=== PATIENT | male | born 1975 | race Caucasian/White ===

== ENCOUNTER 2016-12-30 22:29 | Emergency (ER) | payer SELFPAY ==
[2016-12-31] MEDS ORDERED: MORPHINE SULFATE 10 MG/ML INJ IV ONE ×2 (03:08→05:12)
[2016-12-31] MEDS ORDERED: ONDANSETRON HCL INJ/PF 4 MG/2 ML SDV IV ONE (03:09)
[2016-12-31] MEDS ORDERED: NORMAL SALINE 1000 ML 1,000 ML IV ONE ×2 (03:09→05:03)
--- NOTE | 2016-12-31 03:12 | ER Document Report ---
ED General - General Chief Complaint: Low Back Pain Stated Complaint: BACK PAIN Time seen by provider: 03:10 Notes: Patient is a 41-year-old male that comes emergency department for chief complaint of pain in his right flank, patient states he has not felt good for about 3 days, patient denies injury, he states he's felt nauseated but has not vomited. Patient states pain radiates around to his mid right abdomen. Patient denies history of kidney stones. Past medical history of hypertension, denies any surgeries or medical history otherwise. TRAVEL OUTSIDE OF THE [place] IN LAST 30 DAYS: No - Related Data Allergies/Adverse Reactions: No Known Allergies Allergy (Unverified 12/31/16 05:49) Past Medical History - General Information source: Patient - Social History Smoking Status: Never Smoker Drug Abuse: None Lives with: Family Family History: Reviewed & Not Pertinent - Past Medical History Cardiac Medical History: Reports: Hx Hypertension Renal/ Medical History: Denies: Hx Peritoneal Dialysis Surgical Hx: Negative - Immunizations Hx Diphtheria, Pertussis, Tetanus Vaccination: Yes Review of Systems - Review of Systems Constitutional: No symptoms reported EENT: No symptoms reported Cardiovascular: No symptoms reported Respiratory: No symptoms reported Gastrointestinal: See HPI Genitourinary: See HPI Male Genitourinary: No symptoms reported Musculoskeletal: See HPI Skin: No symptoms reported Hematologic/Lymphatic: No symptoms reported Neurological/Psychological: No symptoms reported Physical Exam - Vital signs Vitals: Temp Pulse Resp BP Pulse Ox 97.7 F 119 H 20 133/105 H 95 12/30/16 22:46 12/30/16 22:46 12/30/16 22:46 12/30/16 22:46 12/30/16 22:46 Interpretation: Normal - General General appearance: Anxious In distress: None - Patient appears anxious but does not appear to be in any distress - HEENT Head: Normocephalic, Atraumatic Eyes: Normal Pupils: PERRL - Respiratory Respiratory status: No respiratory distress Chest status: Nontender Breath sounds: Normal Chest palpation: Normal - Cardiovascular Rhythm: Regular, Tachycardia - borderline Heart sounds: Normal auscultation, S1 appreciated, S2 appreciated Murmur: No - Abdominal Inspection: Normal Distension: No distension Bowel sounds: Normal Tenderness: Tender - Patient complains of pain regardless of for touch, I do not appreciate any rigidity or significant guarding Organomegaly: No organomegaly - Back Back: Normal, CVA tenderness - right side. No: Tender - Extremities General upper extremity: Normal inspection, Nontender, Normal color, Normal ROM , Normal temperature General lower extremity: Normal inspection, Nontender, Normal color, Normal ROM , Normal temperature, Normal weight bearing. No: Cedric's sign - Neurological Neuro grossly intact: Yes Cognition: Normal Orientation: AAOx4 [place] Coma Scale Eye Opening: Spontaneous [place] Coma Scale Verbal: Oriented [place] Coma Scale Motor: Obeys Commands Magui Coma Scale Total: 15 Speech: Normal Cranial nerves: Normal Cerebellar coordination: Normal Motor strength normal: LUE, RUE, LLE, RLE Sensory: Normal - Psychological Associated symptoms: Normal affect, Normal mood - Skin Skin Temperature: Warm Skin Moisture: Dry Skin Color: Normal Course - Re-evaluation Re-evalutation: Patient with what appears to be right flank/CVA tenderness, pain over the abdomen, reported nausea, no vomiting. Leukocytosis of 16.7, elevation of neutrophils with no bandemia, no fever, patient borderline tachycardic after IV fluids. Chemistry indicates undiagnosed type II diabetes with glucose greater than 300, bicarbonate is unremarkable, trace ketones in the urine. Urine has some white blood cells but no nitrites. CT was performed because of initial examination suggestive of kidney stone with flank pain and nausea, however no stone is seen, appendix is normal, no abnormal findings are noted. Discussed with Dr. Aguiar, recommends ultrasound, lactic acid, A1c. Ultrasound is unremarkable, patient still complaining of flank pain on reexamination, patient hypertensive, states he was prescribed clonidine at one point but currently sees no primary care providers. Glucose is downtrending. Lactic acid unremarkable. A1c is elevated. Discussed with Dr. Stevenson for disposition, recommends treatment of type II diabetes with metformin, will treat hypertension, he recommends patient be placed on an antibiotic because of white blood cells in the urine, flank pain, leukocytosis despite unremarkable imaging. Recommends close primary care follow -up. I discussed with patient, patient states that he will fill the medications as long as they are very affordable, as a result patient will be given metformin, lisinopril, Cipro, patient referred to primary care. Patient agrees to return if he worsens in any way including worsening pain, fever, vomiting, etc. - Vital Signs Vital signs: Temp Pulse Resp BP Pulse Ox 98.3 F 101 H 21 H 161/109 H 96 04/11/17 05:22 12/31/16 05:22 12/31/16 07:01 12/31/16 07:01 12/31/16 07:01 - Laboratory Result Diagrams: 12/31/16 04:10 12/31/16 04:10 Laboratory results interpreted by me: 12/31/16 12/31/16 12/31/16 04:10 04:10 04:10 WBC 16.7 H Hgb 13.3 L Seg Neutrophils % 83.1 H Lymphocytes % 9.7 L Absolute Neutrophils 13.9 H Sodium 135.5 L Chloride 94 L Creatinine 0.50 L Glucose 317 H POC Glucose Hemoglobin A1c % AST 16 L Alkaline Phosphatase 146 H Urine Protein 100 H Urine Glucose (UA) 150 H Urine Ketones TRACE H Urine Urobilinogen 4.0 H 12/31/16 12/31/16 04:10 07:05 WBC Hgb Seg Neutrophils % Lymphocytes % Absolute Neutrophils Sodium Chloride Creatinine Glucose POC Glucose 262 H Hemoglobin A1c % 9.8 H AST Alkaline Phosphatase Urine Protein Urine Glucose (UA) Urine Ketones Urine Urobilinogen Discharge - Discharge Clinical Impression: Flank pain, Hyperglycemia, Nausea Abdominal pain Qualifiers: Abdominal location: generalized Qualified Code(s): R10.84 - Generalized abdominal pain Condition: Stable Disposition: HOME, SELF-CARE Additional Instructions: Workup indicates that you have type II diabetes, fatty liver, although the specific cause of your flank and abdominal discomfort is no obvious. Imaging is normal. You are being prescribed an antibiotic called Cipro, please take this as prescribed, take pain medication given as prescribed. Take the metformin for diabetes, take lisinopril for blood pressure. Please follow-up very closely with the referral to primary care management. Return immediately if you worsen in any way including vomiting, fever, severe abdominal pain, etc. Prescriptions: Ciprofloxacin HCl [Cipro 500 mg Tablet] 500 mg PO BID #14 tablet Hydrocodone/Acetaminophen [[place] 5-325 mg Tablet] 1 - 2 tab PO ASDIR #15 tablet Lisinopril 10 mg PO DAILY #30 tablet Metformin HCl 500 mg PO BID #60 tablet Forms: Return to Work Referrals: ISAI TINEO MD [ACTIVE STAFF] - Follow up tomorrow [facility] [Provider Group] - Follow up tomorrow
[2016-12-31 04:33] LABS: ABSOLUTE BASOPHILS # (AUTO) 0.1 10^3/uL (0.0-0.2); ABSOLUTE LYMPHOCYTES (AUTO) 1.6 10^3/uL (0.5-4.7); ABSOLUTE MONOCYTES (AUTO) 1.1 10^3/uL (0.1-1.4); ABSOLUTE NEUT (AUTO) 13.9 10^3/uL (1.7-8.2); BASOPHILS % (AUTO) 0.6 % (0-2); EOSINOPHILS % (AUTO) 0.2 % (0-6); HEMATOCRIT 39.2 % (37.9-51.0); HEMOGLOBIN 13.3 g/dL (13.5-17.0); HGB HCT DIFFERENCE 0.7; LYMPHOCYTES % (AUTO) 9.7 % (13-45); MEAN CORPUSCULAR HGB CONC 33.8 g/dL (32.0-36.0); MEAN CORPUSCULAR VOLUME 83 fl (80-97); MONOCYTES % (AUTO) 6.4 % (3-13); RED BLOOD COUNT 4.73 10^6/uL (4.35-5.55); RED CELL DISTRIBUTION WIDTH 13.5 % (11.5-14.0); SEGMENTED NEUTROPHILS % (AUTO) 83.1 % (42-78); WHITE BLOOD COUNT 16.7 10^3/uL (4.0-10.5)
[2016-12-31] MEDS ORDERED: DIPHENHYDRAMINE HCL 50 MG/ML VIAL IV ONE (04:44)
[2016-12-31 04:45] LABS: APPEARANCE,URINE SLIGHTLY-CLOUDY; BILIRUBIN,URINE NEGATIVE (NEGATIVE); GLUCOSE, URINE 150 mg/dL (NEGATIVE); KETONES,URINE TRACE mg/dL (NEGATIVE); LEUKOCYTE ESTERASE,URINE NEGATIVE (NEGATIVE); NITRITE,URINE NEGATIVE (NEGATIVE); PROTEIN,URINE 100 mg/dL (NEGATIVE); URINE SPECIFIC GRAVITY 1.019
[2016-12-31 04:50] LABS: ALANINE AMINOTRANSFERASE 36 U/L (21-72); ALBUMIN 3.7 g/dL (3.5-5.0); ALKALINE PHOSPHATASE 146 U/L (38-126); ANION GAP 15 (5-19); ASPARTATE AMINO TRANSFERASE 16 U/L (17-59); BILIRUBIN,DIRECT 0.3 mg/dL (0.0-0.4); BILIRUBIN,TOTAL 0.8 mg/dL (0.2-1.3); BLOOD UREA NITROGEN 13 mg/dL (7-20); CALCIUM 9.8 mg/dL (8.4-10.2); CARBON DIOXIDE 27 mmol/L (22-30); CHLORIDE 94 mmol/L (98-107); GLUCOSE 317 mg/dL (75-110); POTASSIUM 4.6 mmol/L (3.6-5.0); SODIUM 135.5 mmol/L (137-145)
[2016-12-31] MEDS ORDERED: LISINOPRIL 10 MG TABLET PO ONE (06:58)
[2016-12-31] MEDS ORDERED: CIPROFLOXACIN HCL 500 MG TABLET PO ONE (06:58)
[2016-12-31] MEDS ORDERED: HYDROCODONE/ACETAMINOPHEN 5-325 MG 6 TAB/DSPK PO PRN (06:59)
[2016-12-31 07:40] VITALS: BP 160/99
--- NOTE | 2016-12-31 07:42 | ER Document Report ---
Doctor's Note Notes: 12/31/16 07:42 Patient independently seen and examined by myself. Patient reports prostate 5 days pain in the right flank along with dark urine and nausea but no vomiting. Abdomen soft bowel sounds positive nontender nondistended no guarding no rebound or rigidity Back as positive for right CVA tenderness and right flank tenderness with palpation. Patient's had a normal abdominal ultrasound normal noncontrasted CT abdomen pelvis. Does have leukocytosis and equivocal evidence for UTI. Laboratory work also supports new onset diabetes but no evidence for DKA as his CO2 and anion gap are normal. Patient will receive primary care referral initial treatment for new onset type II diabetes. He also be treated with antibiotics for potential urinary tract infection. He has benign abdominal exam and unremarkable imaging do not find other more serious etiology to explain his back pain. 12/31/16 07:43
== END 2016-12-31 07:40 | disposition home or self-care (01) ==
LOC: ER 22:29
DX: R73.9 Hyperglycemia, unspecified (principal); R10.9 Unspecified abdominal pain; R11.0 Nausea; R10.84 Generalized abdominal pain; M54.5 Low back pain
CPT/HCPCS: 96376; 99284; 96374; 96375; 36415; 87086; 82962; 83605; 83690; 85025; 87088; 80053; 81001; 87186; 83036; 76705; 76380; J1200; J2270; J2405; J7030

== ENCOUNTER 2017-01-13 12:06 | Inpatient (IN) | payer SELFPAY ==
--- NOTE | 2017-01-13 12:28 | ER Document Report ---
ED Neck/Back Problem - General Mode of Arrival: Medic Information source: Patient TRAVEL OUTSIDE OF THE [place] IN LAST 30 DAYS: No - HPI Patient complains to provider of: Pain, Lower back Onset: Other - 2 weeks ago Context: Other - see notes above Associated symptoms: Other - see notes above - General Chief Complaint: Low Back Pain Stated Complaint: BACK PAIN Notes: 41 year old male with recently diagnosed hypertension and type II diabetes mellitus presents to the ED complaining of lower back pain that started approximately 2 weeks ago. Patient reports that he was seen here on 12/31/2016 for lower back pain where a CT scan and Ultrasound provided negative result, but was given antibiotics for a possible urine infection. Patient reports that he started feeling better when taking the antibiotics, but progressively got worse after he finished his antibiotics. Patient reports diaphoresis, generalized abdominal pain, numbness and tingling to the bilateral fingers ( started this weekend), but denies nausea, vomiting, diarrhea, or hematuria. Patient reports he hasn't had a bowel movement in 1 week, but states that is not abnormal. 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 Patient is currently medicated for diabetes and hypertension. (DEMETRI TINEO) - Related Data Allergies/Adverse Reactions: No Known Allergies Allergy (Unverified 12/31/16 05:49) Past Medical History - General Information source: Patient - Social History Smoking Status: Unknown if Ever Smoked Drug Abuse: Other - history of IV drug abuse 2011 Family History: Reviewed & Not Pertinent - Past Medical History Cardiac Medical History: Reports: Hx Hypertension Endocrine Medical History: Reports: Hx Diabetes Mellitus Type 2 Renal/ Medical History: Denies: Hx Peritoneal Dialysis Skin Medical History: Reports Hx MRSA - Immunizations Hx Diphtheria, Pertussis, Tetanus Vaccination: Yes Review of Systems - Review of Systems Constitutional: See HPI, Diaphoresis EENT: No symptoms reported Cardiovascular: No symptoms reported Respiratory: No symptoms reported Gastrointestinal: See HPI, Abdominal pain. denies: Diarrhea, Nausea, Vomiting Genitourinary: No symptoms reported. denies: Hematuria Male Genitourinary: No symptoms reported Musculoskeletal: See HPI, Back pain - lower Skin: No symptoms reported Hematologic/Lymphatic: No symptoms reported Neurological/Psychological: See HPI, Numbness - bilateral fingers, Tingling - bilateral fingers -: Yes All other systems reviewed and negative Course - Re-evaluation Re-evalutation: 01/13/17 12:43 GENERAL: VS as per nursing doc. Well-appearing, well-nourished and mild acute distress. HEAD: Atraumatic, normocephalic. EYES: Pupils equal round and reactive to light, extraocular movements intact, sclera anicteric, no conjunctival injection or discharge. ENT: Nares patent, oropharynx clear without exudates, somewhat dry mucous membranes. NECK: Normal range of motion, supple without lymphadenopathy. LUNGS: Breath sounds clear to auscultation bilaterally and equal. No wheezes rales or rhonchi. HEART: Tachycardic with 2/6 systolic murmur heard best over the mitral valve region. ABDOMEN: Soft, diffuse tenderness across the right upper abdomen to epigastrium. BACK: No CVA tenderness. Severe tenderness of the mid to upper lumbar spine and paraspinal musculature. Significant pain noted even with log roll for exam. EXTREMITIES: Normal range of motion though increases back pain, no calf tenderness, no edema. Slight mottling NEUROLOGICAL: Cranial nerves grossly intact. Normal speech. Normal sensory and motor exams. No gross cerebellar abnormalities. PSYCH: Normal mood, normal affect. SKIN: Cool and slightly moist, there is a patch over the left hand and right thigh of inflamed tissue, no clear splinter hemorrhages or petechiae. (RUTHANN BORDEN) - Vital Signs Vital signs: Temp Pulse Resp BP Pulse Ox 98.4 F 117 H 17 124/83 70 L 01/13/17 12:23 01/13/17 12:23 01/13/17 12:27 01/13/17 12:23 01/13/17 12:27 Scribe Documentation - Scribe Written by Jerod:: Jerod Hagan, 01/13/2017 [id number] acting as scribe for :: Luis Carlos
[2017-01-13] MEDS ORDERED: NORMAL SALINE 500 ML IV ONE (12:33)
[2017-01-13] MEDS ORDERED: ONDANSETRON HCL INJ/PF 4 MG/2 ML SDV IV ONE (12:34)
[2017-01-13] MEDS ORDERED: HYDROMORPHONE HCL INJ/PF 2 MG/ML AMPULE IV ONE ×2 (12:34→17:28)
[2017-01-13 14:03] LABS: ABSOLUTE BASOPHILS # (AUTO) 0.1 10^3/uL (0.0-0.2); ABSOLUTE LYMPHOCYTES (AUTO) 1.4 10^3/uL (0.5-4.7); ABSOLUTE MONOCYTES (AUTO) 0.9 10^3/uL (0.1-1.4); ABSOLUTE NEUT (AUTO) 9.5 10^3/uL (1.7-8.2); BASOPHILS % (AUTO) 0.5 % (0-2); EOSINOPHILS % (AUTO) 0.2 % (0-6); HEMATOCRIT 36.9 % (37.9-51.0); HEMOGLOBIN 12.8 g/dL (13.5-17.0); HGB HCT DIFFERENCE 1.5; LYMPHOCYTES % (AUTO) 11.8 % (13-45); MEAN CORPUSCULAR HGB CONC 34.6 g/dL (32.0-36.0); MEAN CORPUSCULAR VOLUME 81 fl (80-97); MONOCYTES % (AUTO) 7.6 % (3-13); RED BLOOD COUNT 4.56 10^6/uL (4.35-5.55); RED CELL DISTRIBUTION WIDTH 13.9 % (11.5-14.0); SEGMENTED NEUTROPHILS % (AUTO) 79.9 % (42-78); WHITE BLOOD COUNT 11.9 10^3/uL (4.0-10.5)
[2017-01-13 14:25] LABS: ALANINE AMINOTRANSFERASE 45 U/L (21-72); ALBUMIN 3.8 g/dL (3.5-5.0); ALKALINE PHOSPHATASE 201 U/L (38-126); ANION GAP 13 (5-19); ASPARTATE AMINO TRANSFERASE 27 U/L (17-59); BILIRUBIN,DIRECT 1.1 mg/dL (0.0-0.4); BILIRUBIN,TOTAL 1.6 mg/dL (0.2-1.3); BLOOD UREA NITROGEN 13 mg/dL (7-20); CALCIUM 9.7 mg/dL (8.4-10.2); CARBON DIOXIDE 27 mmol/L (22-30); CHLORIDE 96 mmol/L (98-107); CREATININE RESULT 0.52 mg/dL (0.52-1.25); GLUCOSE 163 mg/dL (75-110); LIPASE 45.4 U/L (23-300); POTASSIUM 4.4 mmol/L (3.6-5.0); SODIUM 135.5 mmol/L (137-145); TOTAL PROTEIN 8.5 g/dL (6.3-8.2)
[2017-01-13 14:28] LABS: CREATINE KINASE < 20 U/L (55-170)
[2017-01-13 14:33] LABS: CREATINE KINASE MB 0.44 ng/mL (<4.55); TROPONIN I 0.03 ng/mL
[2017-01-13 14:37] LABS: C-REACTIVE PROTEIN 178.3 mg/L (<10.0)
[2017-01-13 19:49] LABS: APPEARANCE,URINE SLIGHTLY-CLOUDY; BILIRUBIN,URINE SMALL (NEGATIVE); GLUCOSE, URINE NEGATIVE (NEGATIVE); KETONES,URINE TRACE mg/dL (NEGATIVE); LEUKOCYTE ESTERASE,URINE NEGATIVE (NEGATIVE); NITRITE,URINE NEGATIVE (NEGATIVE); PROTEIN,URINE 100 mg/dL (NEGATIVE); URINE SPECIFIC GRAVITY 1.035
[2017-01-13 19:50] LABS: URINE BARBITURATES SCREEN NEGATIVE; URINE METHADONE SCREEN NEGATIVE; URINE OPIATES LOW UNCONFIRMED POSITIVE; URINE PHENCYCLIDINE SCREEN NEGATIVE
[2017-01-13] MEDS ORDERED: CIPROFLOXACIN HCL 500 MG TABLET PO ONE (19:55)
[2017-01-13] MEDS ORDERED: CEFTRIAXONE INJ 1000 MG VIAL IV ONE (19:57)
--- NOTE | 2017-01-13 21:32 | EKG REPORT ---
SEVERITY:- OTHERWISE NORMAL ECG - SINUS TACHYCARDIA : Confirmed by: Jesusita Daigle 13-Jan-2017 21:32:07
--- NOTE | 2017-01-13 21:33 | EKG REPORT ---
SEVERITY:- ABNORMAL ECG - SINUS TACHYCARDIA PROBABLE LEFT ATRIAL ABNORMALITY ST ELEVATION, CAN NOT R/O INFERIOR INJURY PROBABLE POSTERIOR INFARCT : Confirmed by: Jesusita Daigle 13-Jan-2017 21:32:52
[2017-01-13] MEDS ORDERED: DEXTROSE 50%-WATER 25 GM/50 ML DISP.SYRIN IV PRN ×2 (21:34)
[2017-01-13] MEDS ORDERED: INSULIN LISPRO 100 UNIT/ML 3 ML VIAL SUBCUT PRN (21:34)
[2017-01-13] MEDS ORDERED: DEXTROSE 40% GEL 15 GM TUBE PO PRN ×2 (21:34)
[2017-01-13] MEDS ORDERED: GLUCAGON,HUMAN RECOMB 1 MG INJ IM PRN (21:34)
[2017-01-13] MEDS ORDERED: NICOTINE 21 MG/24 HR PATCH.TD24 TD PRN (21:39)
[2017-01-13] MEDS ORDERED: PROMETHAZINE HCL INJ 25 MG/1 ML VIAL IV PRN (21:39)
[2017-01-13] MEDS ORDERED: OXYCODONE HCL IR 5 MG TABLET PO PRN (21:42)
[2017-01-13] MEDS ORDERED: MORPHINE SULFATE 10 MG/ML INJ IV PRN (21:42)
[2017-01-13] MEDS ORDERED: ACETAMINOPHEN 325 MG TABLET PO PRN (21:42)
[2017-01-13] MEDS ORDERED: NORMAL SALINE 1000 ML 1,000 ML IV PRN (21:43)
[2017-01-13] MEDS ORDERED: VANCOMYCIN HCL 0 MG in DEXTROSE 5%-WATER 250 ML IV NR (21:45)
--- NOTE | 2017-01-13 22:05 | PDOC H&P ---
History of Present Illness Admission Date/PCP: 01/13/17 20:36 PCP None Patient complains of: back pain History of Present Illness: CASSIUS ROMAN is a 41 year old male with recently diagnosed hypertension and type II diabetes mellitus, with a history of MRSA infection and endocarditis in 2011 secondary to IV drug abuse, but with no recent use of same, who presents to the emergency room for evaluation of above complaint. Patient has been discussed with emergency room physician who evaluated the patient. Was seen in the emergency room on the and discharged with diagnosis of suspected urinary tract infection. Discharge prescriptions include 500 mg of Cipro twice a day #14, norco 5-325, lisinopril 10 mg by mouth daily and metformin 500 mg by mouth twice a day.. Took medications as prescribed. While on the antibiotics, he felt better. However, states that almost immediately after stopping the antibiotics, his lower back pain, cramping and spasm-like, worsening with movement, has increased. He's had diaphoresis, generalized mild abdominal pain, subjective fever and chills, and dysuria. No prior history of urinary tract infection, pyelonephritis, or kidney stones. No chest pain. Also describes recent onset of somewhat painful lesions on the distal aspect of his right thigh, along with dorsal left wrist. Laboratory results are listed in [employer] and are reviewed. X-ray summary results are listed below, with full report(s) reviewed. . EKG's reviewed. No prior EKG available for comparison. Social history/personal habits: Single. No children. Unemployed. Pack of cigarettes per day. No alcohol or illicit drug use. Allergies/adverse reactions NKDA. Home medications as noted above. Home medications initially autopopulated into [employer] may not accurately reflect patient's true medications, dosages, and/or frequencies. mri tech to reconcile medications. REVIEW OF SYSTEMS: Constitutional: See history and present illness. Eyes: No current vision complaints. ENT: No swallowing problems or complaints. No hearing problems or complaints. Pulmonary: No current complaints. Cardiovascular: No current complaints, including chest pain. Gastrointestinal: See history and present illness. Skin: See history and present illness. Hematologic: No unusual easy bruising or bleeding. Neurologic: No current complaints, including numbness or tingling. Musculoskeletal: See history and present illness. Joint pain from arthritis. Psychiatric: No current complaints, including anxiety or depression. Endocrine: No current complaints, including polyuria. Genitourinary: See history and present illness. PHYSICAL EXAMINATION: 5 feet 9 inches tall. 92.8 kg. BMI 30.2 kg/m. Blood pressure 109/74. Pulse 109 and regular. 95% saturation on room air. Respirations are 20 and unlabored. Temperature 98.7. Slightly obese otherwise well-developed male appearing approximately his stated age. Appears not to feel very well. Complaining of lower back pain. Otherwise, pleasant awake alert and cooperative. Mildly anxious, without agitation. Female emergency room nurse Jacquelin is present. Patient's father is present at his side; patient improves. Skin is warm and dry. No grossly obvious evidence of rash in areas of skin examined. On the dorsum of his left wrist, he has approximately a 2 x 3 cm erythematous somewhat tender lesion. macular. No crepitus fluctuance or expressible discharge. On the distal dorsal lateral aspect of his right thigh, just proximal to the knee joint, he has 2 similar slightly larger lesions. Erythematous, macular, tender to touch. Again, no crepitus fluctuance or expressible discharge. ENT: Hearing grossly normal to normal conversation. Tongue midline on protrusion pink and slightly tacky. Eyes: No scleral icterus. Pupils equal and reactive to light at [address] [place] conjunctivae. Neck is supple and nontender to gentle active range of motion and palpation. Midline trachea. No palpable thyroid nodule mass enlargement or tenderness. Lymphatic: No palpable cervical or clavicular nodes. Neck and lymphatic exams limited by patient body habitus. Psychiatric: Reasonable insight into acute and chronic medical issues. Oriented to time location and why here. Lungs: Auscultation reveals clear and equal breath sounds bilaterally. No use of accessory respiratory muscles. Cardiovascular: Heart regular rate and rhythm, without gallop or rub. Subtle I/ holosystolic murmur at cardiac apex. No carotid or abdominal aortic bruits. No ankle or pedal edema. palpable dorsalis pedis pulses. Abdomen: soft, slightly obese, mild diffuse tenderness with positive bowel sounds. Certainly no evidence of guarding or peritoneal signs. A bit more uncomfortable in the lower abdomen. Unable to adequately evaluate abdomen for masses or organomegaly due to body habitus and discomfort. Palpation in his lower back reveals mild diffuse tenderness. Mild to moderate tenderness in the right costovertebral angle region. Much less so on the left. Extremities: Feet are warm and dry. No calf tenderness to compression. No grossly obvious visual evidence of calf swelling. Gentle manipulation of lower extremities fails to reveal any obvious evidence of injury or instability to knees hips or ankles. Neurologic: Moves upper extremities grossly normally. Patellar reflexes absent. Absent Babinski. Light touch is intact at feet. Dorsiflexion and plantarflexion of feet 5 / 5 and symmetric. Past Medical History Cardiac Medical History: Reports: Hypertension, Other - History of endocarditis , 2011, secondary to IV drug abuse Denies: DVT, Myocardial Infarction, Hyperlipidema, Pulmonary Embolism Pulmonary Medical History: Denies: Asthma, Chronic Obstructive Pulmonary Disease (COPD), Sleep Apnea EENT Medical History: Denies: Eyes, Ears, Throat Neurological Medical History: Denies: Hemorrhagic CVA, Ischemic CVA, Seizures Endocrine Medical History: Reports: Diabetes Mellitus Type 2 Denies: Diabetes Mellitus Type 1, Hyperthyroidism, Hypothyroidism Renal/ Medical History: Denies: Chronic Kidney Disease, Nephrolithiasis GI Medical History: Reports: Gastroesophageal Reflux Disease, Peptic Ulcer Disease - Recently diagnosed peptic ulcer disease. Denies: Cirrhosis, Hepatitis Musculoskeltal Medical History: Denies: Arthritis Skin Medical History: Reports: None Psychiatric Medical History: Reports: Substance Abuse - History of IV drug abuse., Tobacco Dependency Denies: Alcohol Dependency, Depression, General Anxiety Disorder Hematology: Reports: None Infectious Medical History: Reports: Methicillin-Resistant Staph Aureus - 2011, with septic emboli. Denies: Clostridium Difficile, Hepatitis B, Hepatitis C Past Surgical History Past Surgical History: Reports: Orthopedic Surgery - hand Social History Information Source: Patient, Emergency Med Personnel, [facility] Records Smoking Status: Current Every Day Smoker Frequency of Alcohol Use: None Drugs: None - History of IV drug abuse. - Advance Directive Resuscitation Status: Full Code Surrogate healthcare decision maker:: Father Family History Family History: Reviewed & Not Pertinent Parental Family History Reviewed: Yes - father with PTSD. Mother is healthy. Children Family History Reviewed: NA Sibling(s) Family History Reviewed.: Yes - healthy Medication/Allergy Home Medications: Lisinopril [Prinivil 10 mg Tablet] 10 mg PO DAILY 01/13/17 Metformin HCl [Glucophage] 500 mg PO BID 01/13/17 Allergies/Adverse Reactions: No Known Allergies Allergy (Unverified 12/31/16 05:49) Physical Exam Vital Signs: Temp Pulse Resp BP Pulse Ox 98.7 F 117 H 16 129/85 H 94 01/13/17 13:01 01/13/17 12:23 01/13/17 21:01 01/13/17 21:01 01/13/17 21:01 Results Impressions: Lumbar Spine X-Ray 01/13/17 12:30 IMPRESSION: Mild spondylosis. Soft Tissue Neck X-Ray 01/13/17 14:45 IMPRESSION: The marker is at the level of C5. Lumbar Spine CT 01/13/17 17:06 IMPRESSION: NO CT EVIDENCE OF DISCITIS, OSTEOMYELITIS, OR SPINAL ABSCESS. LIMITED EVALUATION OF THE INTRAPERITONEAL STRUCTURES DEMONSTRATES HETEROGENEOUS ENHANCEMENT OF THE LEFT GREATER THAN RIGHT KIDNEY SUGGESTIVE OF PYELONEPHRITIS. CORRELATE WITH URINARY STUDIES. Assessment & Plan - Diagnosis (1) Abnormal EKG Is this a current diagnosis for this admission?: YesPlan: Repeat EKG not overly remarkable. Repeat troponin pending. Certainly no obvious evidence of acute coronary syndrome. (2) Back pain Qualifiers: Back pain location: low back pain Chronicity: acute Back pain laterality: bilateral Sciatica presence: without sciatica Qualified Code(s): M54.5 - Low back pain Is this a current diagnosis for this admission?: YesPlan: Likely secondary to pyelonephritis. When necessary pain medication. (3) Cellulitis of right thigh Is this a current diagnosis for this admission?: YesPlan: Concern for possible septic emboli, given his history of endocarditis from IV drug abuse. Intravenous vancomycin. Pharmacy to assist with dosing. Echocardiogram. (4) Cellulitis of wrist Is this a current diagnosis for this admission?: YesPlan: As above for cellulitis of right thigh. (5) Elevated LFTs Is this a current diagnosis for this admission?: YesPlan: Likely due to acute infection. Repeat chemistry. (6) Pyelonephritis Is this a current diagnosis for this admission?: YesPlan: Recent Culture results reviewed. Sensitive to vancomycin. Will continue same. I have strongly encouraged patient not to get out of bed , to avoid a fall with injury. Knee high SCDs for DVT prophylaxis, [along with subcutaneous Lovenox . Impression and plans were discussed with patient, and father, both of whom concur. Time spent in evaluation and management of patient: 63 minutes. (7) Diabetes mellitus type 2 in obese Is this a current diagnosis for this admission?: YesPlan: Will hold metformin due to IV contrast study. Accu-Cheks with appropriate sliding scale coverage. (8) History of MRSA infection Is this a current diagnosis for this admission?: YesPlan: Contact precautions. (9) History of drug abuse Is this a current diagnosis for this admission?: Yes (10) History of endocarditis Is this a current diagnosis for this admission?: Yes (11) Tobacco dependency Is this a current diagnosis for this admission?: YesPlan: When necessary nicotine patch. - Inpatient Certification Based on my medical assessment, after consideration of the patient's comorbidities, presenting symptoms, or acuity I expect that the services needed warrant INPATIENT care.: Yes I certify that my determination is in accordance with my understanding of Medicare's requirements for reasonable and necessary INPATIENT services [42 CFR 412.3e].: Yes Medical Necessity: Failure to Improve With Outpatient Therapy, Need Close Monitoring Due to Risk of Patient Decompensation, Need for IV Antibiotics, Risk of Complication if Not Cared For in Hospital, Risk of Diagnosis Which Will Require Inpatient Eval/Care/Monitoring Post Hospital Care: D/C or Transfer Summary
[2017-01-13 22:41] LABS: PROTHROMBIN TIME 14.3 SEC (11.4-15.4)
[2017-01-13 22:42] LABS: PARTIAL THROMBOPLASTIN TIME 34.7 SEC (23.5-35.8)
[2017-01-13 22:54] LABS: CREATINE KINASE MB 7.83 ng/mL (<4.55); TROPONIN I 1.02 ng/mL
[2017-01-14] MEDS ORDERED: VANCOMYCIN HCL 1,500 MG in DEXTROSE 5%-WATER 250 ML IV SCH ×2
--- NOTE | 2017-01-14 00:27 | PDOC TRANSFER SUMMARY ---
General Admission Date/PCP: 01/13/17 20:36 Resuscitation Status: Full Code - Transfer Diagnosis (1) Abnormal EKG Is this a current diagnosis for this admission?: Yes (2) Back pain Is this a current diagnosis for this admission?: Yes (3) Cellulitis of right thigh Is this a current diagnosis for this admission?: Yes (4) Cellulitis of wrist Is this a current diagnosis for this admission?: Yes (5) Elevated LFTs Is this a current diagnosis for this admission?: Yes (6) Pyelonephritis Is this a current diagnosis for this admission?: Yes (7) Diabetes mellitus type 2 in obese Is this a current diagnosis for this admission?: Yes (8) History of MRSA infection Is this a current diagnosis for this admission?: Yes (9) History of drug abuse Is this a current diagnosis for this admission?: Yes (10) History of endocarditis Is this a current diagnosis for this admission?: Yes (11) Tobacco dependency Is this a current diagnosis for this admission?: Yes (12) Elevated troponin Is this a current diagnosis for this admission?: YesDiagnosis Summary: 01/14/2017: Second and third troponins have shown a significant increase. Remains chest pain-free, still with lower back pain. Vital signs remain stable. Concern for possible non-ST elevation NE. Transfer recommended to patient. He agrees. Blood pressure right arm 125/66; left arm 120/82. Pulse 111 and regular. Respirations are 16 and unlabored. Temperature 98.0. 96% saturation on room air. 12:05 AM, I discussed the patient by phone with Dr. Daigle. He agrees with plans for transfer. At 12:26 AM this morning, as discussed the patient by phone with Dr. Rick flat polisher at [facility]. Agrees patient should come to their facility, but feels hospitalist service would be the most appropriate service. Recommends proceeding with aspirin, statin, beta carlos, but feels patient should not be started on Plavix or systemic anticoagulation. Patient discussed by phone at 12:38 AM this morning with Dr. Tang, on-call hospitalist at [facility]. Patient discussed in detail. She has graciously accepted the patient. Beds are available. Will discuss with patient. Plans discussed with patient, who agrees. Remains stable for transport. 40 minutes critical care time spent in evaluation and management of patient, including direct patient evaluation, multiple discussions with nursing staff, entering of multiple orders into the electronic health record, and the above- noted multiple telephone discussions with other physicians. - Transfer Medications Home Medications: Lisinopril [Prinivil 10 mg Tablet] 10 mg PO DAILY 01/13/17 Metformin HCl [Glucophage] 500 mg PO BID 01/13/17 Transfer Medications: Current Medications Acetaminophen (Tylenol 325 Mg Tablet) 650 mg PO Q8HP PRN PRN Reason: PAIN OR FEVER Stop: 02/12/17 21:41 Dextrose (Dextrose Inj 50% Syringe (25 Gm/50 Ml)) 12.5 gm IV PRN PRN; Protocol PRN Reason: FOR BG 50-69 IN ALERT PATIENT Stop: 02/12/17 21:33 Dextrose (Dextrose Inj 50% Syringe (25 Gm/50 Ml)) 25 gm IV PRN PRN PRN Reason: Protocol Stop: 02/12/17 21:33 Docusate Sodium (Colace 100 Mg Capsule) 100 mg PO BID [facility] Stop: 02/13/17 09:59 Enoxaparin Sodium (Lovenox Inj 40 Mg/0.4 Ml Disp.Syrin) 40 mg SUBCUT QAM [facility] Stop: 02/13/17 07:59 Glucagon (Glucagen Inj 1 Mg Vial) 1 mg IM PRN PRN; Protocol PRN Reason: Evaluate for BG < 70 Stop: 02/12/17 21:33 Glucose (Glutose 40% Gel 15 Gm Tube) 15 gm PO PRN PRN; Protocol PRN Reason: FOR BG 50-69 IN ALERT PATIENT Stop: 02/12/17 21:33 Glucose (Glutose 40% Gel 15 Gm Tube) 30 gm PO PRN PRN; Protocol PRN Reason: FOR BG < 50 IN ALERT PATIENT Stop: 02/12/17 21:33 Sodium Chloride (Nacl 0.9% 1000 Ml Iv Soln) 1,000 mls @ 125 mls/hr IV CONTINUOUS PRN PRN Reason: THIS MED IS NOT "PRN" Vancomycin HCl 1,500 mg/ (Dextrose) 250 mls @ 166.667 mls/hr IV Q6 MEG Stop: 01/21/17 00:00 Last Admin: 01/14/17 00:01 Dose: 1,500 mg Insulin Human Lispro (Humalog Insulin 100 Unit/1 Ml 3 Ml Vial) 0 - 12 unit SUBCUT ACHSP PRN PRN Reason: Protocol Stop: 02/12/17 21:33 Morphine Sulfate (Morphine 10 Mg/Ml Inj) 2 mg IV Q4HP PRN Stop: 01/20/17 21:41 Last Admin: 01/13/17 22:30 Dose: 2 mg Nicotine (Nicoderm 21 Mg/24 Hr Transderm Patch) 1 each TD DAILYP PRN Stop: 02/12/17 21:38 Oxycodone HCl (Oxy-Ir 5 Mg Tablet) 5 mg PO Q8HP PRN Stop: 01/20/17 21:41 Promethazine HCl (Phenergan Inj 25 Mg/1 Ml Vial) 6.25 mg IV Q6HP PRN Stop: 02/12/17 21:38 Sodium Chloride (Saline Flush 2.5 Ml Monoject Prefil Syrin) 2.5 ml IV Q8 MEG Stop: 02/12/17 21:59 Last Admin: 01/13/17 22:23 Dose: Not Given - Allergies Allergies/Adverse Reactions: No Known Allergies Allergy (Unverified 12/31/16 05:49) Physical Exam Vital Signs: Temp Pulse Resp BP Pulse Ox 98.7 F 114 H 16 129/85 H 94 01/13/17 13:01 01/13/17 21:59 01/13/17 21:01 01/13/17 21:01 01/13/17 21:01 Results Laboratory Results: 01/13/17 21:14 Magnesium 1.6 01/13/17 01/13/17 01/13/17 21:14 22:22 22:22 Creatine Kinase 71 CK-MB (CK-2) 7.83 H Troponin I 0.830 1.020 Impressions: Lumbar Spine X-Ray 01/13/17 12:30 IMPRESSION: Mild spondylosis. Soft Tissue Neck X-Ray 01/13/17 14:45 IMPRESSION: The marker is at the level of C5. Lumbar Spine CT 01/13/17 17:06 IMPRESSION: NO CT EVIDENCE OF DISCITIS, OSTEOMYELITIS, OR SPINAL ABSCESS. LIMITED EVALUATION OF THE INTRAPERITONEAL STRUCTURES DEMONSTRATES HETEROGENEOUS ENHANCEMENT OF THE LEFT GREATER THAN RIGHT KIDNEY SUGGESTIVE OF PYELONEPHRITIS. CORRELATE WITH URINARY STUDIES.
[2017-01-14 00:39] VITALS: BP 112/71
[2017-01-14] MEDS ORDERED: ATORVASTATIN CALCIUM 20 MG TABLET PO ONE (00:45)
[2017-01-14] MEDS ORDERED: METOPROLOL TARTRATE 25 MG TABLET PO ONE (00:45)
[2017-01-14] MEDS ORDERED: ASPIRIN 81 MG TABLET, CHEWABLE PO ONE (00:45)
[2017-01-14] MEDS ORDERED: ENOXAPARIN SODIUM INJ 40 MG/0.4 ML DISP.SYRIN SUBCUT SCH (08:00)
[2017-01-14] MEDS ORDERED: DOCUSATE SODIUM 100 MG CAPSULE PO SCH (10:00)
--- NOTE | 2017-01-14 11:11 | EKG REPORT ---
SEVERITY:- OTHERWISE NORMAL ECG - SINUS TACHYCARDIA : Confirmed by: Jesusita Daigle 14-Jan-2017 11:11:27
== END 2017-01-14 02:59 | disposition short-term general hospital (02) | DRG 690 ==
LOC: ER 12:06 → UNDOADMIN 20:36 → EH 20:36 → 4N 22:01
PROVIDERS: ADMIT Family Medicine; ATTEND Family Medicine
DX: N12 Tubulo-interstitial nephritis, not specified as acute or chronic (principal); L03.115 Cellulitis of right lower limb; L03.114 Cellulitis of left upper limb; E11.9 Type 2 diabetes mellitus without complications; M47.9 Spondylosis, unspecified; I10 Essential (primary) hypertension; F17.210 Nicotine dependence, cigarettes, uncomplicated; K21.9 Gastro-esophageal reflux disease without esophagitis; E66.9 Obesity, unspecified; Z68.31 Body mass index [BMI] 31.0-31.9, adult; Z86.14 Personal history of Methicillin resistant Staphylococcus aureus infection; Z87.11 Personal history of peptic ulcer disease; Z79.899 Other long term (current) drug therapy
CPT/HCPCS: 36415; 70360; 72110; 72133; 80053; 80307; 81001; 82550; 82553; 82962; 83605; 83690; 83735; 84484; 85025; 85610; 85730; 86140; 87040; 87077; 87086; 87088; 87186; 93005; 93010; 96374; 96375; 96376; 99285; J0696; J1170; J2270; J2405; J3370; J7040; J7060